=== PATIENT | female | born 1935 | race Caucasian/White ===

== ENCOUNTER → 2016-10-23 | Outpatient (REF) | payer OTHER ==
[2016-10-27 00:07] LABS: TOTAL ALK PHOS 162 IU/L (39-117)
== END ==
LOC: M LAB REF 16:39
PROVIDERS: ATTEND Internal Medicine
DX: R74.8 Abnormal levels of other serum enzymes (principal)

== ENCOUNTER → 2016-11-20 | Outpatient (REF) | payer OTHER | LOC: M LAB REF 11:43 | PROVIDERS: ATTEND Internal Medicine | DX: R74.8 Abnormal levels of other serum enzymes (principal) ==

== ENCOUNTER → 2019-09-24 | Outpatient (CLI) | payer MEDICARE ==
--- NOTE | 2019-09-24 10:26 | REPPI ---
Clinical: Cough. Technique: PA and lateral. Comparison: 06/11/2016. Findings: Mediastinum and cardiac silhouette are stable. Lung mooney demonstrate chronic interstitial and emphysematous changes. Superimposed lower lobe atelectasis/early infiltrates suspected and should be correlated clinically. No effusion. No pneumothorax. Skeletal structures stable. Impression: Chronic changes with suspected subtle superimposed acute atelectasis/infiltrate. Electronically Signed by Henry Bajwa MD 09/24/2019 10:17 A
== END ==
LOC: M PLAIMG 10:01
PROVIDERS: ATTEND Internal Medicine
DX: R91.8 Other nonspecific abnormal finding of lung field (principal)

== ENCOUNTER → 2020-01-19 | Outpatient (REF) | payer OTHER ==
[2020-01-19 12:45] LABS: VITAMIN B12 LEVEL 933 PG/ML (247-911)
== END ==
LOC: M LAB REF 12:05
PROVIDERS: ATTEND Internal Medicine
DX: G31.84 Mild cognitive impairment of uncertain or unknown etiology (principal)

== ENCOUNTER 2021-01-08 06:51 | Emergency (ER) | payer MEDICARE ==
[~2021-01-08] VITALS: Ht 165.1 cm; Wt 76.4 kg
[2021-01-08] MEDS ORDERED: LEVO25TA5 PO (06:57)
[2021-01-08 07:35] LABS: BASO # 0.1 10^3/uL (0.0-0.2); EOS # 0.4 10^3/uL (0.0-0.5); EOS % 4.4 % (0.0-3.0); HEMATOCRIT 40.9 % (36.0-47.0); HEMOGLOBIN 13.1 g/dl (12.0-15.5); LYMPH # 1.9 10^3/uL (1.5-5.0); LYMPH % 19.3 % (24.0-44.0); MEAN CORPUSCULAR HEMOGLOBIN 30.6 pg (27.0-33.0); MEAN CORPUSCULAR VOLUME 95.6 fl (80.0-96.0); MONO # 1.2 10^3/uL (0.0-0.8); MONO % 12.1 % (2.0-8.0); NEUTROPHILS # 6.1 10^3/uL (1.5-8.5); NEUTROPHILS % 62.8 % (36.0-66.0); PLATELET COUNT, AUTOMATED 328 10^3/uL (150-450); RED BLOOD COUNT 4.28 10^6/uL (4.00-5.40); WHITE BLOOD COUNT 9.7 10^3/uL (4.0-10.0)
--- NOTE | 2021-01-08 08:01 | REP ---
INDICATION: DYSPNEA/COUGH COMPARISON: 09/24/2019 TECHNIQUE: Portable AP view of the chest FINDINGS: Right upper lobe and bibasilar opacities suggest multifocal pneumonia. Small left effusion cannot be excluded. No pneumothorax. Mediastinum and cardiac silhouette are grossly stable/normal. Skeletal structures intact. IMPRESSION: Multifocal opacities suggesting pneumonia. Follow-up to resolution recommended. <Electronically signed by Henry Bajwa > 01/08/21 [id number]
[2021-01-08 08:03] LABS: INR 1.06
[2021-01-08 08:04] LABS: PARTIAL THROMBOPLASTIN TIME 38.4 SECONDS (24.2-38.5)
[2021-01-08 08:12] LABS: BILIRUBIN,DIRECT 0.1 MG/DL (0.0-0.2); BILIRUBIN,TOTAL 0.4 MG/DL (0.2-1.0); CALCIUM LEVEL 8.9 MG/DL (8.8-10.2); CK-MB VALUE MASS 7.9 NG/ML (<3.6); CREATININE FOR GFR 0.98 MG/DL (0.55-1.30); GLOMERULAR FILTRATION RATE 57.2 (>32); MB/CK RELATIVE INDEX 10.13 (< OR =4); POTASSIUM SERUM 3.8 MEQ/L (3.5-5.1); THYROID STIMULATING HORMONE 5.12 uIU/ML (0.358-3.740); TOTAL PROTEIN 6.9 GM/DL (6.4-8.2); TROPONIN I 1.53 NG/ML (< 0.10)
[2021-01-08] MEDS ORDERED: FUROSEMIDE 20MG/2ML VIAL (J1940) IV ONE (08:15)
[2021-01-08] MEDS ORDERED: ASPIRIN 325 MG TAB PO ONE (08:15)
[2021-01-08] MEDS ORDERED: ISOVUE-370 76% 100ML VIAL As Ordered ONE (08:58)
--- NOTE | 2021-01-08 09:27 | REP ---
INDICATION: cough, pulmonary congestion COMPARISON: None. TECHNIQUE: Axial contrast enhanced images from the thoracic inlet to the upper abdomen using pulmonary embolus technique with multiplanar re-formations. 75 ml Isovue 370 intravenous contrast material administered without complication. This CT examination was performed using the following dose reduction techniques: Automated exposure control, adjustment of mA and/or kv according to the patient's size, and use of iterative reconstruction technique. FINDINGS: There is no evidence for pulmonary embolus. Atherosclerotic changes to the thoracic aorta and coronary arteries noted without aortic aneurysm. No significant cardiomegaly or pericardial effusion is identified. The lung mooney demonstrate moderate pleural effusions (right greater than left) with pulmonary vascular congestion, cephalization, and diffuse scattered ground-glass opacities as well as scattered patchy bibasilar atelectasis. There is an area of early prominent airspace disease involving the right upper lobe. No pneumothorax. Tracheobronchial tree is relatively patent. Mild reactive mediastinal adenopathy is suspected. Limited upper abdomen demonstrates normal bilateral adrenal glands and evidence for prior cholecystectomy. Musculoskeletal structures without acute osseous abnormality. IMPRESSION: 1. No evidence for pulmonary embolus. 2. Findings described above including moderate pleural effusions, prominent pulmonary vasculature, scattered ground-glass opacities with patchy atelectasis and early forming right upper lobe infiltrate. Differential diagnosis includes pulmonary vascular congestion/early CHF as well as pneumonia. <Electronically signed by Henry Bajwa > 01/08/21 [id number]
[2021-01-08 09:53] LABS: MB/CK RELATIVE INDEX 10.98 (< OR =4); TROPONIN I 1.76 NG/ML (< 0.10)
[2021-01-08] MEDS ORDERED: CLOPIDOGREL 300 MG TAB (PLAVIX) PO STA (10:32)
[2021-01-08] MEDS ORDERED: HEPARIN SOD (PORCINE) 5000UNITS/ML 1ML VIAL/SYRINGE IV ONE (10:35)
[2021-01-08] MEDS ORDERED: HEPARIN DRIP 25,000 UNITS in IV 1 EA IV SCH (10:35)
[2021-01-08] MEDS ORDERED: HEPARIN 25,000 UNITS/250 ML D5W BAG (100 UNITS/ML) (J1644 PER 1000UNITS) As Ordered ONE (10:38)
--- NOTE | 2021-01-08 10:56 | ECGEPIP ---
[facility] - ED Test Date: 2021-01-08 Pat Name: CASTILLO FUNG Department: Room: - Gender: Female Certified Flight Instructor: RS : 1935 Requested By: PETE Ordaz Order Number: [id number] Reading MD: Dario Yo Measurements Intervals [place] Rate: 78 P: 111 AL: 224 QRS: 207 QRSD: 126 T: 41 QT: 394 QTc: 449 Interpretive Statements Suspect arm lead reversal, interpretation assumes no reversal Sinus rhythm with 1st degree AV block Left ventricular hypertrophy with QRS widening and repolarization abnormality ( Spray product ) Cannot rule out Septal infarct , age undetermined Lateral infarct , age undetermined Electronically Signed on 01-08-2021 10:56:11 EDT by Dario Yo
--- NOTE | 2021-01-08 11:00 | ECGEPIP ---
[facility] - ED Test Date: 2021-01-08 Pat Name: CASTILLO FUNG Department: Room: - Gender: Female Electrical Research Engineer: DARLING : 1935 Requested By: PETE Ordaz Order Number: [id number] Reading MD: Dario Yo Measurements Intervals [place] Rate: 90 P: 72 [place]: 240 QRS: -25 QRSD: 126 T: 144 QT: 402 QTc: 491 Interpretive Statements Sinus rhythm with marked sinus arrhythmia with 1st degree AV block Left ventricular hypertrophy with QRS widening and repolarization abnormality ( [place] product ) Cannot rule out Septal infarct , age undetermined LEFT ANTERIOR FASCICULAR BLOCK Electronically Signed on 01-08-2021 11:00:01 EDT by Dario Yo
[2021-01-08 14:51] VITALS: BP 165/74
== END 2021-01-08 15:12 | disposition short-term general hospital (02) ==
LOC: M ED 06:51
DX: I21.4 Non-ST elevation (NSTEMI) myocardial infarction (principal); I50.9 Heart failure, unspecified; I44.0 Atrioventricular block, first degree; I11.0 Hypertensive heart disease with heart failure; E03.9 Hypothyroidism, unspecified; K21.9 Gastro-esophageal reflux disease without esophagitis; Z79.890 Hormone replacement therapy
CPT/HCPCS: 71045; 71275; 80048; 80076; 82550; 82553; 83880; 84443; 84484; 85025; 85610; 85730; 87798; 93005; 93041; 94760; 96365; 96366; 96375; 99285; J1644; J1940; Q9967

== ENCOUNTER → 2021-02-08 | Outpatient (CLI) | payer MEDICARE ==
[~2021-02-08] MED LIST: LEVO25TA5 PO
[2021-02-08 10:07] LABS: ALBUMIN 3.2 GM/DL (3.2-5.2); BLOOD UREA NITROGEN 22 MG/DL (7-18); CALCIUM LEVEL 9.1 MG/DL (8.8-10.2); CARBON DIOXIDE LEVEL 28 MEQ/L (21-32); CHLORIDE LEVEL 110 MEQ/L (98-107); CHOLESTEROL LEVEL 111 MG/DL (<200); CHOLESTEROL RISK RATIO 2.413 (<5); CREATININE FOR GFR 0.92 MG/DL (0.55-1.30); GLOMERULAR FILTRATION RATE > 60.0 (>32); GLUCOSE, FASTING 100 MG/DL (70-100); HDL CHOLESTEROL 46 MG/DL (>40); LDL CHOLESTEROL 53 MG/DL (<100); NON-HDL-C 65 MG/DL; NT-PRO BNP 3998 PG/ML (<450); PHOSPHORUS LEVEL 2.7 MG/DL (2.5-4.9); POTASSIUM SERUM 4.6 MEQ/L (3.5-5.1); SODIUM LEVEL 143 MEQ/L (136-145); TRIGLYCERIDES LEVEL 60 MG/DL (<150)
== END ==
LOC: M WUC 08:08
PROVIDERS: ATTEND Internal Medicine Cardiovascular Disease
DX: I50.1 Left ventricular failure, unspecified (principal); E78.5 Hyperlipidemia, unspecified

== ENCOUNTER → 2021-06-27 | Outpatient (CLI) | payer MEDICARE ==
[2021-06-27 11:58] LABS: CALCIUM LEVEL 9.5 MG/DL (8.8-10.2); CREATININE FOR GFR 1.26 MG/DL (0.55-1.30); GLOMERULAR FILTRATION RATE 42.7 (>32); POTASSIUM SERUM 4.3 MEQ/L (3.5-5.1)
== END ==
LOC: M PLALAB 08:02
PROVIDERS: ATTEND Internal Medicine Cardiovascular Disease
DX: I50.42 Chronic combined systolic (congestive) and diastolic (congestive) heart failure (principal)

== ENCOUNTER → 2021-12-26 | Outpatient (REF) | payer MEDICARE ==
[2021-12-27 13:22] LABS: BACTERIA, URINE AUTO 3+ (NEGATIVE); RBC, URINE AUTO 0 /HPF (0-3); SQUAMOUS EPITHELIAL CELL UR AU 2 /HPF (0-6); WBC, URINE AUTO 4 /HPF (0-3)
== END ==
LOC: M LAB REF 12:32
PROVIDERS: ATTEND Internal Medicine
DX: R31.9 Hematuria, unspecified (principal)